=== PATIENT | female | born 1955 | race Caucasian/White ===

== ENCOUNTER 2017-04-18 07:21 | Emergency (ER) | payer OTHER ==
[~2017-04-18] VITALS: Ht 157.5 cm; Wt 61.2 kg
--- NOTE | 2017-04-18 08:18 | ED GI/GU/ABDOMINAL COMPLAINT ---
History of Present Illness General Chief Complaint: Abdominal Pain/Flank Pain Stated Complaint: R FLANK PAIN Source: patient, family, old records Exam Limitations: no limitations Vital Signs & Intake/Output Vital Signs & Intake/Output Vital Signs Date Time Temp Pulse Resp B/P B/P Pulse O2 O2 Flow FiO2 Mean Ox Delivery Rate 04/18 1141 99.1 78 18 127/72 98 Room Air 04/18 0731 98.0 66 15 115/74 100 Room Air Allergies Coded Allergies: Penicillins (DIZZINESS 04/18/17) Triage Note: PT TO ED FOR R SIDED FLANK PAIN, GENERAL WEAKNESS AND VOMITING SINCE 3 AM THIS MORNING. Triage Nurses Notes Reviewed? yes LMP (ages 10-50): post menopausal ? n Is pt currently ? No Onset: Just prior to arrival Duration: hour(s):, constant, continues in ED Timing: recent history Quality/Severity: sharpness, severe, vomiting Location: right flank Radiation: no radiation Activities at Onset: sleep Prior Abdominal Problems: none Past Sexual History: Unobtainable at this time No Modifying Factors: none Associated Symptoms: abdominal pain, nausea/vomiting HPI: 5 hours prior to admission patient awoke with right moderate to severe sharp constant nonradiating flank pain associated with nausea vomiting. Denies fever chills chest pain cough shortness of breath diarrhea headache dysuria rash bleeding previous episode. Past History Travel History Traveled to [place] past 21 day No Medical History Any Pertinent Medical History? 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 Yes (sister with kidney stones) Review of Systems Review of Systems Constitutional: Reports: see HPI, malaise. EENTM: Reports: no symptoms. Respiratory: Reports: no symptoms. Cardiovascular: Reports: no symptoms. GI: Reports: see HPI, abdominal pain, nausea, vomiting. Genitourinary: Reports: no symptoms. Musculoskeletal: Reports: no symptoms. Skin: Reports: no symptoms. Neurological/Psychological: Reports: no symptoms. Hematologic/Endocrine: Reports: no symptoms. Immunologic/Allergic: Reports: no symptoms. All Other Systems: Reviewed and Negative Physical Exam Physical Exam General Appearance: well developed/nourished, alert, awake, anxious, moderate distress Head: atraumatic, normal appearance Eyes: Bilateral: normal appearance, PERRL, EOMI, normal inspection. Ears, Nose, Throat, Mouth: hearing grossly normal, moist mucous membrane Neck: normal inspection, supple, full range of motion, normal alignment, no midline tenderness Respiratory: normal breath sounds, chest non-tender, no respiratory distress, quiet respiration, lungs clear Cardiovascular: regular rate/rhythm, normal peripheral pulses, norml femoral pulses equa Peripheral Pulses: 4+ carotid (R), 4+ carotid (L) Gastrointestinal: normal bowel sounds, soft, non-tender, no organomegaly Back: normal inspection, normal range of motion, CVA tenderness (R) (mild) Extremities: normal range of motion, no ligament instability Neurologic/Psych: no motor/sensory deficits, awake, alert, oriented x 3, normal gait, normal mood/affect, equipment or machinery cleaner II-XII nml as tested Skin: intact, normal color, warm/dry Core Measures ACS in differential dx? No Severe Sepsis Present: No Septic Shock Present: No Progress Differential Diagnosis: biliary colic, kidney stone, pancreatitis, UTI/pyelo Plan of Care: Orders Procedure Date/time Status URINALYSIS 04/18 812 Complete LIPASE 04/18 812 Complete COMPREHENSIVE METABOLIC PANEL 04/18 812 Complete CBC WITHOUT DIFFERENTIAL 04/18 812 Complete Laboratory Tests 04/18/17 1019: Urinalysis MOD H, Urine Color YEL, Urine Clarity CLEAR, Urine pH 7.5, Ur Specific [place] 1.015, Urine Protein NEG, Urine Ketones NEG, Urine Nitrite NEG, Urine Bilirubin NEG, Urine Urobilinogen 0.2, Ur Leukocyte Esterase NEG, Ur Microscopic SEDIMENT EXAMINED, Urine RBC 5-10 H, Urine WBC RARE, Ur Epithelial Cells FEW, Urine Bacteria FEW H, Urine Mucus FEW, Urine Hemoglobin SMALL H, Urine Glucose NEG 04/18/17 0830: Anion Gap 9, Estimated GFR > 60, BUN/Creatinine Ratio 28.8 H, Glucose 135 H, Calcium 9.4, Total Bilirubin 0.6, AST 34, ALT 40, Alkaline Phosphatase 70, Total Protein 7.4, Albumin 4.6, Globulin 2.8, Albumin/Globulin Ratio 1.6, Lipase 65, CBC w Diff NO MAN DIFF REQ, RBC 4.26, MCV 88.8, MCH 29.1, RDW 13.9, MPV 8.9, Gran % 90.8 H, Lymphocytes % 7.5 L, Monocytes % 1.7, Eosinophils % 0, Basophils % 0 L, Absolute Granulocytes 8.3 H, Absolute Lymphocytes 0.7 L, Absolute Monocytes 0.2, Absolute Eosinophils 0, Absolute Basophils 0, PUBS MCHC 32.7 L Diagnostic Imaging: Viewed by Me: CT Scan. Discussed w/RAD: CT Scan. Radiology Impression: Mild right hydronephrosis and proximal ureteral dilatation. There is stranding of the right perinephric fat and fat surrounding the right proximal ureter. There is question of a 2 mm right UVJ stone. Loculated fluid/ascites or cyst in the left lower quadrant measuring 2.3 x 7.6 cm. Enlarged uterus with calcifications suggestive of fibroids. Initial ED EKG: none Departure Departure Time of Disposition: 1141 Disposition: HOME OR SELF CARE Condition: Stable Clinical Impression Primary Impression: Renal colic on right side Secondary Impressions: Fibroid, uterine Qualifiers: Uterine leiomyoma location: unspecified location Qualified Code: D25.9 - Leiomyoma of uterus, unspecified Referrals: MINH MENEZES MD Call for urology follow up Departure Forms: Customer Survey General Discharge Information Prescriptions: Current Visit Scripts Oxycodone HCl/Acetaminophen (Percocet 5-325 MG Tablet) 1-2 TAB PO 4 TIMES/DAY PRN severe pain #20 TAB Ibuprofen 1 TAB PO Q6PRN PRN pain #50 TAB with food Tamsulosin HCl (Flomax) 1 CAP PO DAILY #15 CAP
[2017-04-18 08:35] LABS: ABSOLUTE BASOPHIL COUNT 0 /CUMM (0.0-0.2); ABSOLUTE EOSINOPHIL COUNT 0 /CUMM (0.0-0.7); ABSOLUTE GRANULOCYTE CT 8.3 /CUMM (1.4-6.5); ABSOLUTE LYMPH COUNT 0.7 /CUMM (1.2-3.4); ABSOLUTE MONOCYTE COUNT 0.2 /CUMM (0.10-0.60); BASOPHIL % 0 % (0.0-2.0); EOSINOPHIL % 0 % (0-5); HEMATOCRIT 37.8 % (37-47); MEAN CORPUSCULAR HGB 29.1 PG (27.0-31.0); MEAN CORPUSCULAR HGB CONC 32.7 G/DL (33.0-37.0); MEAN CORPUSCULAR VOLUME 88.8 FL (81.0-99.0); MEAN PLATELET VOLUME 8.9 FL (7.4-10.4); PLATELET COUNT 219 /CUMM (130-400); RBC DISTRIBUTION WIDTH 13.9 % (11.5-14.5); RED BLOOD CELL CT 4.26 /CUMM (4.20-5.40); WHITE BLOOD CELL COUNT 9.1 /CUMM (4.8-10.8)
[2017-04-18 08:47] LABS: GRANULOCYTE % 90.8 % (42.2-75.2)
--- NOTE | 2017-04-18 11:23 | CT SCAN REPORT ---
EXAMINATION: CT ABDOMEN AND PELVIS WITHOUT CONTRAST CLINICAL INFORMATION: Right flank pain. COMPARISON: None TECHNIQUE: Multidetector volumetric imaging was performed from the superior aspect of the liver through the pubic symphysis. Sagittal and coronal reformatted images were obtained on the technologist's workstation. DLP: 321 mGy-cm FINDINGS: LUNG BASES: There is mild focal bronchiectasis and atelectasis or scarring in the right middle lobe and lingula. LIVER, GALLBLADDER, AND BILIARY TREE: The liver is normal in size, shape, and attenuation. No focal hepatic lesion or biliary ductal dilatation is present. There is increased attenuation in the fundus of the gallbladder questionable for stone or sludge. Gallbladder is otherwise unremarkable. PANCREAS: Unremarkable. SPLEEN: Unremarkable. ADRENAL GLANDS: Unremarkable. KIDNEYS AND URETERS: There is stranding of the right perinephric fat and surrounding the right proximal ureter. There is mild right hydronephrosis and proximal ureteral dilatation. There is question of a 2 mm right distal or UVJ stone. The left kidney is unremarkable. BLADDER: Otherwise unremarkable. GASTROINTESTINAL TRACT: The small and large bowel are unremarkable. The appendix is is not identified. ABDOMINAL WALL: No significant hernia is appreciated. LYMPH NODES: No adenopathy is seen. There is a loculated fluid collection or possibly cyst in the left lower quadrant. This measures 2.3 x 7.6 cm. VASCULAR: Unremarkable. PELVIC VISCERA: The uterus is prominent for the patient's age. There are fundal calcifications probably representing calcified fibroids. OSSEOUS STRUCTURES: Unremarkable. IMPRESSION: Mild right hydronephrosis and proximal ureteral dilatation. There is stranding of the right perinephric fat and fat surrounding the right proximal ureter. There is question of a 2 mm right UVJ stone. Loculated fluid/ascites or cyst in the left lower quadrant measuring 2.3 x 7.6 cm. Enlarged uterus with calcifications suggestive of fibroids. This could be better evaluated with pelvic ultrasound.
[2017-04-18 11:41] VITALS: BP 127/72
[2017-04-18] MEDS ORDERED: FLOMAX0.4 M1 PO (11:44)
[2017-04-18] MEDS ORDERED: IBUPROFEN600 M1 PO (11:44)
[2017-04-18] MEDS ORDERED: PERCOCET 5-3251 EACH PO (11:44)
== END 2017-04-18 12:07 ==
LOC: ERH 07:21
PROVIDERS: Emergency Medicine
DX: N23 Unspecified renal colic (principal); D25.9 Leiomyoma of uterus, unspecified
CPT/HCPCS: 74176; 81001; 96374; 96375; J1885; J2405